=== PATIENT | female | born 1945 | race Two or more races ===

== ENCOUNTER 2024-02-27 10:13 | Inpatient (IN) | payer OTHER, MEDICAID ==
[~2024-02-27] VITALS: Ht 152.4 cm; Wt 64.5 kg
[~2024-02-27 10:13] MED LIST: METO25TA93 PO; TRAM50TA2 PO
[2024-02-27 10:30] VITALS: PULSE 70; RESP 12; O2SAT 96
[2024-02-27] MEDS: HYDROcodone-ACET 5/325MG TAB PO ONE (11:23)
[2024-02-27 11:25] LABS: Basophils # (auto) 0 10 ^3/uL (0-0.2); Basophils % (auto) 0.4 % (0.0-2.0); Eosinophils # (auto) 0.1 10 ^3/uL (0-0.8); Eosinophils % (auto) 1.5 % (0.0-7.0); Hematocrit 39.4 % (36.0-46.0); Hemoglobin 13.2 g/dL (12.2-16.2); Lymphocytes # (auto) 1.1 10 ^3/uL (0.4-5.4); Lymphocytes % (auto) 14.4 % (10.0-50.0); Mean Corpuscular Hemoglobin 28.6 pg (28.0-32.0); Mean Corpuscular Hgb Conc. 33.5 g/dL (32.0-36.0); Mean Corpuscular Volume 85.4 fL (80.0-100.0); Monocytes # (auto) 0.6 10 ^3/uL (0-1.3); Monocytes % (auto) 7.3 % (0.0-12.0); Neutrophils # (auto) 5.9 10 ^3/uL (1.6-8.6); Neutrophils % (auto) 76.4 % (37.0-80.0); Nucleated Red Blood Cells % 0.1 %; Platelet Count (auto) 205 10^3/uL (140-450); Red Blood Cells 4.61 10^6/uL (4.0-5.20); Red Cell Distribution Width 17.1 % (11.8-14.3); White Blood Cell 7.7 10^3/uL (4.4-10.8)
[2024-02-27 11:33] LABS: Chloride 104 mmol/L (98-107); Potassium 4.3 mmol/L (3.5-5.1); Sodium 138 mmol/L (136-145)
[2024-02-27 11:34] LABS: Anion Gap 9 (5-15); Calcium 9.2 mg/dL (8.7-10.4); Carbon Dioxide 25 mmol/L (20-30)
[2024-02-27 11:39] LABS: Blood Urea Nitrogen 25 mg/dL (9-23); Glucose 94 mg/dL (74-106)
[2024-02-27] MEDS: ONDANSETRON HCL 4 MG/2 ML VIAL IV ONE (17:38)
[2024-02-27] MEDS: MORPHINE SULFATE 4 MG/ML SYR/VIAL IV ONE (17:38)
[2024-02-27 19:25] VITALS: PULSE 83; RESP 18; O2SAT 92
[2024-02-27] MEDS ORDERED: AMLO1TAB22 PO (21:26)
[2024-02-27] MEDS ORDERED: ATOR-47 PO (21:26)
[2024-02-27] MEDS ORDERED: MEMA1TAB5 PO (21:26)
[2024-02-27] MEDS ORDERED: DONE1TAB88 PO (21:26)
[2024-02-27] MEDS ORDERED: APIX5TAB PO (21:26)
[2024-02-27 22:06] LABS: Urine Bacteria None Seen /hpf (None Seen)
[2024-02-27 22:11] LABS: Urine Blood TRACE /uL (Negative); Urine Clarity Clear (Clear); Urine Color Light-Yellow (Yellow); Urine Protein, UAD Negative (Negative); Urine Urobilinogen Normal (Negative); Urine WBC <1 /hpf (0 - 5); Urine pH 6.5 (5.0-9.0)
[2024-02-27] MEDS: IOHEXOL 350 MG/ML 100ML IJ ONE (23:05)
[2024-02-28] MEDS ORDERED: HYDROcodone-ACET 5/325MG TAB PO PRN (03:30)
[2024-02-28] MEDS ORDERED: MECLIZINE HCL 25 MG TAB PO PRN (03:30)
[2024-02-28] MEDS ORDERED: ACETAMINOPHEN 325 MG TAB PO PRN (03:30)
[2024-02-28] MEDS ORDERED: ONDANSETRON HCL 4 MG/2 ML VIAL IV PRN (03:30)
[2024-02-28] MEDS: FLEET ENEMA(ADULT) 135 ML PR ONE (03:50)
[2024-02-28 06:19] VITALS: BP 139/48; PULSE 81; RESP 17; TEMP 98.1; O2SAT 94; O2SAT 95
[2024-02-28] MEDS: MEMANTINE HCL 5 MG TAB PO SCH (10:28)
[2024-02-28] MEDS: DOCUSATE SOD 100 MG CAP PO SCH (10:28)
[2024-02-28] MEDS: METOPROLOL SUCCINATE XL 50 MG TAB PO SCH (10:30)
[2024-02-28 13:00] VITALS: BP 151/67; PULSE 64; RESP 19; TEMP 98.3; O2SAT 93
[2024-02-28] MEDS ORDERED: amLODIPine BESYLATE 5 MG TAB PO ONE (14:30)
[2024-02-28] MEDS: amLODIPine BESYLATE 5 MG TAB PO ONE (15:27)
[2024-02-28 17:00] VITALS: BP 130/52; PULSE 65; RESP 21; TEMP 97.6; O2SAT 91
[2024-02-28 22:00] VITALS: BP 140/68; PULSE 53; RESP 18; TEMP 98.6; O2SAT 93
[2024-02-28] MEDS: LACTULOSE 20Gm/30ML SOLN PO SCH (22:15)
[2024-02-28] MEDS: ATORVASTATIN 20 MG TAB PO SCH (22:16)
[2024-02-28] MEDS: APIXABAN 5 MG TAB PO SCH (22:17)
[2024-02-28] MEDS: DONEPEZIL HYDROCHLORIDE 5 MG TAB PO SCH (22:17)
[2024-02-29 01:00] VITALS: BP 137/78; PULSE 79; RESP 18; TEMP 98.4; O2SAT 95
[2024-02-29 05:00] VITALS: BP 155/77; PULSE 79; RESP 18; TEMP 98.4; O2SAT 94
[2024-02-29 06:15] LABS: Basophils # (auto) 0 10 ^3/uL (0-0.2); Basophils % (auto) 0.4 % (0.0-2.0); Eosinophils # (auto) 0.2 10 ^3/uL (0-0.8); Eosinophils % (auto) 2.3 % (0.0-7.0); Hematocrit 35.8 % (36.0-46.0); Hemoglobin 12.4 g/dL (12.2-16.2); Lymphocytes # (auto) 1.7 10 ^3/uL (0.4-5.4); Lymphocytes % (auto) 15.9 % (10.0-50.0); Mean Corpuscular Hgb Conc. 34.5 g/dL (32.0-36.0); Mean Corpuscular Volume 84.2 fL (80.0-100.0); Monocytes # (auto) 1.2 10 ^3/uL (0-1.3); Monocytes % (auto) 11.9 % (0.0-12.0); Neutrophils # (auto) 7.3 10 ^3/uL (1.6-8.6); Neutrophils % (auto) 69.5 % (37.0-80.0); Platelet Count (auto) 204 10^3/uL (140-450); Red Blood Cells 4.25 10^6/uL (4.0-5.20); White Blood Cell 10.5 10^3/uL (4.4-10.8)
[2024-02-29 06:35] LABS: Alanine Aminotransferase 12 U/L (7-40); Albumin 3.7 g/dL (3.2-4.8); Alkaline Phosphatase 109 U/L (46-116); Anion Gap 8 (5-15); Aspartate Aminotransferase 15 U/L (13-40); BUN/Creatinine Ratio 16.7 (10.0-20.0); Blood Urea Nitrogen 18 mg/dL (9-23); Calcium 8.9 mg/dL (8.7-10.4); Carbon Dioxide 24 mmol/L (20-30); Chloride 101 mmol/L (98-107); Cholesterol 119 mg/dL (< 200); Glucose 97 mg/dL (74-106); HDL Cholesterol 47 mg/dL (40-59); LDL Cholesterol 53 mg/dL (< 100); Magnesium 2.1 mg/dL (1.6-2.6); Potassium 3.7 mmol/L (3.5-5.1); Triglycerides 74 mg/dL (< 150)
[2024-02-29 06:36] LABS: Bilirubin, Total 1.6 mg/dL (0.2-1.0); Total Protein 6.5 g/dL (5.7-8.2)
[2024-02-29 06:37] LABS: Sodium 133 mmol/L (136-145)
[2024-02-29 09:01] VITALS: BP 156/71; PULSE 84; RESP 21; TEMP 98.4; O2SAT 93
[2024-02-29] MEDS: amLODIPine BESYLATE 5 MG TAB PO SCH (09:57)
[2024-02-29] MEDS ORDERED: amLODIPine BESYLATE 5 MG TAB PO SCH (10:00)
[2024-02-29 12:42] VITALS: BP 132/60; PULSE 51; RESP 19; TEMP 98.4; O2SAT 95
[2024-02-29] MEDS: FLEET ENEMA(ADULT) 135 ML PR ONE (13:15)
[2024-02-29 17:00] VITALS: BP 143/64; PULSE 59; RESP 21; TEMP 97.8; O2SAT 97
[2024-02-29 22:00] VITALS: BP 109/60; PULSE 48; RESP 18; TEMP 98.3; O2SAT 93
[2024-03-01 01:00] VITALS: BP 135/62; PULSE 60; RESP 16; TEMP 99; O2SAT 92
[2024-03-01 05:00] VITALS: BP 114/46; PULSE 85; RESP 17; TEMP 98.1; O2SAT 94
[2024-03-01 09:00] VITALS: BP 145/67; PULSE 55; RESP 18; TEMP 98.8; O2SAT 94
[2024-03-01 13:00] VITALS: BP 120/50; PULSE 58; RESP 16; TEMP 98.1; O2SAT 96
[2024-03-01 17:06] VITALS: BP 133/53; PULSE 59; RESP 16; TEMP 99; O2SAT 96
[2024-03-01 22:00] VITALS: BP 125/55; PULSE 69; RESP 18; TEMP 98.5; O2SAT 95
[2024-03-02 01:00] VITALS: BP 138/59; PULSE 68; RESP 19; TEMP 99.3; O2SAT 95
[2024-03-02 05:00] VITALS: BP 137/74; PULSE 68; RESP 17; TEMP 98.2; O2SAT 94
[2024-03-02 08:00] VITALS: PULSE 102; O2SAT 98
[2024-03-02 09:08] VITALS: BP 143/71; PULSE 69; RESP 16; TEMP 98.6; O2SAT 94
[2024-03-02 13:00] VITALS: BP 153/77; PULSE 70; RESP 18; TEMP 97.7; O2SAT 94
[2024-03-02 13:48] VITALS: BP 153/77; PULSE 70; RESP 18; TEMP 97.7; O2SAT 94
== END 2024-03-02 16:20 | disposition home or self-care (01) | DRG 392 ==
LOC: ER 10:13 → EDBD 10:13 → OVERFLOW 02-28 03:22 → WEST WING 02-28 06:05
PROVIDERS: ADMIT Nurse Practitioner; ATTEND Internal Medicine Geriatric Medicine
DX: K59.00 Constipation, unspecified (principal); N13.30 Unspecified hydronephrosis; G45.9 Transient cerebral ischemic attack, unspecified; K52.89 Other specified noninfective gastroenteritis and colitis; I10 Essential (primary) hypertension; F03.90 Unspecified dementia, unspecified severity, without behavioral disturbance, psychotic disturbance, mood disturbance, and anxiety; E04.2 Nontoxic multinodular goiter; K57.30 Diverticulosis of large intestine without perforation or abscess without bleeding; R42 Dizziness and giddiness
CPT/HCPCS: 36415; 70450; 76536; 80048; 80053; 80061; 81001; 83735; 84443; 84484; 85025; 93005; 97110; 97163; 97530; G0378; J2405